=== PATIENT | male | born 1935 | race Two or more races ===

== ENCOUNTER 2021-10-01 12:40 | Emergency (ER) | payer MEDICARE, OTHER ==
[~2021-10-01] VITALS: Ht 170.2 cm; Wt 86.2 kg
--- NOTE | 2021-10-01 13:20 | NUR ---
BIBDAUGHTER C/O MILD COUGH SINCE MONDAY, TESTED COVID POSITIVE(+) MONDAY, DAUGHTER IS COVID POSITIVE(+). OXYGEN SATURATION IN ROOM AIR IS AT 96%. RESPIRATION REGULAR AND UNLABORED. WILL CONTINUE TO MONITOR THE PATIENT.
[2021-10-01 14:41] VITALS: BP 131/75
--- NOTE | 2021-10-01 14:41 | NUR ---
Patient discharged to home in stable condition. Written and verbal after care instructions given. Patient verbalizes understanding of instruction.
== END 2021-10-01 14:42 | disposition home or self-care (01) ==
LOC: ER 12:56
DX: U07.1 COVID-19 (principal); I10 Essential (primary) hypertension
CPT/HCPCS: 71045-TC